=== PATIENT | female | born 1995 | race Caucasian/White ===

== ENCOUNTER 2023-05-10 13:30 | Outpatient (CLI) | payer OTHER | END 2023-05-10 13:45 | disposition home or self-care (01) | LOC: LAB.N 13:30 | PROVIDERS: ATTEND Nurse Practitioner | DX: J02.9 Acute pharyngitis, unspecified (principal) | CPT/HCPCS: 87070 ==

== ENCOUNTER 2023-07-31 14:00 | Emergency (ER) | payer OTHER ==
[2023-07-31 14:09] VITALS: O2SAT 100
--- NOTE | 2023-07-31 15:09 | ED Physician Documentation ---
History of Present Illness - Stated complaint Stated Complaint: RADHA RIVERA - Chief complaint Chief Complaint: General - Additonal information Additional information: 27-year-old female with no pertinent past medical history presents emergency dep artment for upper respiratory infection symptoms. Patient says that she has been feeling unwell since Monday she is here with her significant other who also has similar symptoms and presented to the emergency department last night for similar symptoms. Patient says that she got COVID in 2019 and since then she has been having a hard time recovering from upper respiratory infections. She endorses and some shortness of air with inhalation but no shortness of breath on exertion. She denies any chest pain no nausea vomiting diarrhea she is unsure if 70 fevers or chills she said that she felt really hot after she awoke from a nap earlier today but her took her temperature and it was within normal limits. PD PAST MEDICAL HISTORY - Past Medical History Past Medical History: No Cardiovascular: None Respiratory: None Neuro: None Endocrine/Autoimmune: None GI: None CARBIDER: None : None HEENT: None Psych: None Musculoskeletal: None Derm: None - Past Surgical History Past Surgical History: Yes HEENT: Tonsil/Adenoidectomy - Present Medications Home Medications: Ambulatory Orders Medication Instructions Recorded Confirmed Albuterol Sulf [Ventolin Hfa 1 - 2 puffs INH Q4HR PRN #1 ea 07/31/23 Inhaler] - Allergies Allergies/Adverse Reactions: Allergies Allergy/AdvReac Type Severity Reaction Status Date / Time No Known Drug Allergies Allergy Verified 07/31/23 15:45 - Social History Does the pt smoke?: No Smoking Status: Never smoker Does the pt drink ETOH?: No Does the pt have substance abuse?: No - Immunizations Immunizations are current?: Yes - POLST Patient has POLST: No PD ED PE NORMAL - Vitals Vital signs reviewed: Yes - General General: Alert and oriented X 3, No acute distress, Well developed/nourished - HEENT HEENT: Atraumatic, PERRL - Cardiac Cardiac: RRR - Respiratory Respiratory: No respiratory distress, Clear bilaterally - Abdomen Abdomen: Normal bowel sounds - Derm Derm: Normal color, Warm and dry, No rash Results - Vitals Vitals: Vital Signs - 24 hr 07/31/23 07/31/23 07/31/23 14:03 15:50 16:10 Temperature 36.7 C 36.8 C Heart Rate 88 74 77 Respiratory 16 20 16 Rate Blood Pressure 126/75 126/63 O2 Saturation 100 100 07/31/23 16:59 Temperature Heart Rate Respiratory 13 Rate Blood Pressure O2 Saturation Oxygen O2 Source Room air - Labs Labs: Laboratory Tests 07/31/23 14:06 Nasal Adenovirus (PCR) NOT DETECTED Nasal B. parapertussis DNA (PCR) NOT DETECTED Nasal Coronavir 229E PCR NOT DETECTED Nasal Coronavir HKU1 PCR NOT DETECTED Nasal Coronavir NL63 PCR NOT DETECTED Nasal Coronavir OC43 PCR NOT DETECTED Nasal Enterovir/Rhinovir PCR NOT DETECTED Nasal Influenza B PCR NOT DETECTED Nasal Influenza A PCR NOT DETECTED Nasal Parainfluen 1 PCR NOT DETECTED Nasal Parainfluen 2 PCR NOT DETECTED Nasal Parainfluen 3 PCR NOT DETECTED Nasal Parainfluen 4 PCR NOT DETECTED Nasal RSV (PCR) NOT DETECTED Nasal B.pertussis DNA PCR NOT DETECTED Nasal C.pneumoniae (PCR) NOT DETECTED Marcial Human Metapneumo PCR NOT DETECTED Nasal M.pneumoniae (PCR) NOT DETECTED Nasal SARS-CoV-2 (PCR) NOT DETECTED - Rads (name of study) 2 view chest x-ray Relevant Findings:: Final report received, EMP independent interpretation of test, Other (No acute cardiopulmonary abnormalities) PD Medical Decision Making - ED course ED course: This patient presents with symptoms suspicious for likely viral upper respiratory infection. Based on history and physical doubt sinusitis. Do not suspect underlying cardiopulmonary process. I considered, but think unlikely, dangerous causes of this patients symptoms to include ACS, CHF or COPD exacerbations, pneumonia, pneumothorax. Patient is nontoxic appearing and not in need of emergent medical intervention. Patient told to self isolate at home until symptoms subside. Respiratory panel was negative chest x-ray was also complete and did not reveal any cardiopulmonary abnormalities or pneumonia. She was given a DuoNeb here in the emergency department she did notice some allevia tion in symptoms although she said that it made her heart race which made her more anxious. Patient told to follow-up with primary care provider and she is given ER return precautions. Departure - Departure Disposition: 01 Home, Self Care Clinical Impression: Upper respiratory infection Qualifiers: URI type: unspecified viral URI Qualified Code(s): J06.9 - Acute upper respiratory infection, unspecified Condition: Good Instructions: Inhaler W Spacer, Inhaler Metered Dose Dc, ED Dyspnea Shortness of Breath Prescriptions: Albuterol Sulf [Ventolin Hfa Inhaler] 1 - 2 puffs INH Q4HR PRN #1 ea PRN Reason: Shortness Of Air/Wheezing Comments: Thank you for trusting us with your care, we have evaluated you for your shortness of breath, we have completed a respiratory panel and are not seeing any acute viral infections at this point in time. We have also completed a chest x-ray and we are not seeing any abnormalities at this time either there is no pneumonia and I am not seeing any signs of COPD that has been told to you in the past. I am sending a prescription for an albuterol inhaler to the [facility] you can pick this up first thing tomorrow morning take as needed for any shortness of breath. Continue to rest stay well-hydrated you are okay to return to work as long as you have been 24 hours without a fever without any medications like Tylenol or ibuprofen on board. Please come back to the emergency department for shortness of breath gets any worse or if he started develop any worsening wheezing or any other concerning emergent symptoms. Please help with your primary care provider. Wishing you a speedy recovery. Forms: PCP List Discharge Date/Time: 07/31/23 16:59
[2023-07-31 15:12] LABS: B. PARAPERTUSSIS- RESP PCR PAN NOT DETECTED; B. PERTUSSIS- RESP PCR PANEL NOT DETECTED; C. PNEUMONIAE- RESP PCR PANEL NOT DETECTED; CORONAVIRUS 229E-RESP PCR NOT DETECTED; CORONAVIRUS HKU1-RESP PCR NOT DETECTED; CORONAVIRUS NL63-RESP PCR NOT DETECTED; CORONAVIRUS OC43-RESP PCR NOT DETECTED; HUMAN METAPNEUMOVIRUS NOT DETECTED; INFLUENZA A- RESP PCR PANEL NOT DETECTED; INFLUENZA B - RESP PCR PANEL NOT DETECTED; M. PNEUMONIAE- RESP PCR PANEL NOT DETECTED; PARAINFLUENZA VIRUS 1 NOT DETECTED; PARAINFLUENZA VIRUS 2 NOT DETECTED; PARAINFLUENZA VIRUS 3 NOT DETECTED; PARAINFLUENZA VIRUS 4 NOT DETECTED; RHINOVIRUS/ENTEROVIRUS NOT DETECTED; RSV- RESP PCR PANEL NOT DETECTED; SARS-CoV-2 -RESP PCR PANEL NOT DETECTED
[2023-07-31] MEDS: IBUPROFEN 600 MG TABLET PO STA (15:16)
[2023-07-31] MEDS: ACETAMINOPHEN 325 MG TABLET PO STA (15:16)
[2023-07-31] MEDS: IPRATROPIUM/ALBUTEROL 3 ML NEB INH STA (15:46)
[2023-07-31 16:17] VITALS: BP 126/63
--- NOTE | 2023-07-31 16:39 | XRAY Report ---
PROCEDURE: Chest 2V INDICATIONS: SOA TECHNIQUE: 2 views of the chest were acquired. COMPARISON: None. FINDINGS: Surgical changes and devices: None. Lungs and pleura: No dense consolidation or pleural effusion. Mediastinum: Normal heart size Bones and chest wall: No suspicious bony lesions. Overlying soft tissues appear unremarkable. IMPRESSION: No acute radiographic abnormality. Reviewed by: Henok Wooten MD on 07/31/2023 4:38 PM PDT Approved by: Henok Wooten MD on 07/31/2023 4:38 PM PDT Station ID: [id number]
== END 2023-07-31 16:59 | disposition home or self-care (01) ==
LOC: ED 14:00
DX: J06.9 Acute upper respiratory infection, unspecified (principal); Z11.52 Encounter for screening for COVID-19
CPT/HCPCS: 71046; 87633; 94640; 94664; 99284; A9270

== ENCOUNTER 2023-12-18 08:00 | Outpatient (CLI) | payer OTHER ==
[2023-12-18 17:51] LABS: BILIRUBIN,URINE NEGATIVE (NEGATIVE); GLUCOSE, URINE (UA) NEGATIVE (NEGATIVE); KETONES,URINE (UA) NEGATIVE (NEGATIVE); LEUKOCYTE ESTERASE, URINE NEGATIVE (NEGATIVE); NITRITE,URINE NEGATIVE (NEGATIVE); OCCULT BLOOD,URINE TRACE-INTA (NEGATIVE); PH,URINE 6.5 PH (5.0-7.5); PROTEIN,URINE NEGATIVE (NEGATIVE); UROBILINOGEN,URINE 0.2 (NORMAL) E.U./dL (NORMAL)
[2023-12-18 19:01] LABS: CLARITY,URINE CLEAR (CLEAR); RBC,URINE 0-5 /HPF (0-5); WBC,URINE 0-3 /HPF (0-5)
[2023-12-18 19:02] LABS: BACTERIA,URINE Rare /HPF (None Seen); SQUAMOUS EPITHELIAL CELL,UR RARE Squamous (<= Few)
== END 2023-12-18 23:59 | disposition home or self-care (01) ==
LOC: LAB.WC 08:00
PROVIDERS: ATTEND Nurse Practitioner
DX: Z34.00 Encounter for supervision of normal first pregnancy, unspecified trimester (principal)
CPT/HCPCS: 81001; 87086

== ENCOUNTER 2023-12-28 18:27 | Outpatient (CLI) | payer OTHER ==
[2023-12-28 19:17] LABS: BASOPHILS # (AUTO) 0.1 10^3/uL (0.0-0.1); BASOPHILS % (AUTO) 0.5 %; EOSINOPHILS # (AUTO) 0.2 10^3/uL (0.0-0.7); HCT - HEMATOCRIT 39.2 % (37.0-47.0); HGB - HEMOGLOBIN 12.5 g/dL (12.0-16.0); LYMPHOCYTES # (AUTO) 2.9 10^3/uL (1.5-3.5); LYMPHOCYTES % (AUTO) 27.2 %; MEAN CORPUSCULAR HEMOGLOBIN 28.3 pg (27.0-31.0); MEAN CORPUSCULAR HGB CONC 31.9 g/dL (32.0-36.0); MEAN CORPUSCULAR VOLUME 88.7 fL (81.0-99.0); MEAN PLATELET VOLUME 9.6 fL (7.9-10.8); NEUTROPHILS # (AUTO) 6.5 10^3/uL (1.5-6.6); NEUTROPHILS % (AUTO) 61.1 %; PLT - PLATELET COUNT 273 10^3/uL (130-450); RED BLOOD COUNT 4.42 10^6/uL (4.20-5.40); RED CELL DISTRIBUTION WIDTH 12.8 % (12.0-15.0); WHITE BLOOD COUNT 10.7 x10^3/uL (4.8-10.8)
--- NOTE | 2023-12-28 21:44 | Ultrasound Report ---
PROCEDURE: OB 1st Trimester INDICATIONS: TEST POSITIVE OUTSIDE/PRIOR DATING DATA: Last menstrual period (LMP): 10/27/2023. LMP-based estimated date of delivery (TELMA): 08/02/2024. First dating scan (date and location): 12/27/2024. Estimated date of delivery (TELMA) from first dating scan: 07/31/2024 TECHNIQUE: Real-time scanning was performed of the fetus and maternal pelvic organs, with image documentation. COMPARISON: None. FINDINGS: Intrauterine gestational sac present. Embryo: Single live intrauterine is identified with crown-rump length measuring 2.5 cm cor responding to 9 weeks 1 day. Heart rate: 178 bpm. Other: . Subchorionic hemorrhage is present measuring 16 x 8 x 28 mm. Measurement variability in dating: +/- 4 weeks by LMP, +/- 7 days by mean sac diameter (use before 6 weeks gestation if crown-rump length not able to be measured), +/- 5 days by crown-rump length (6-12 weeks gestation). Maternal organs: Ovaries appear within normal limits. IMPRESSION: Single intraoperative gestational age today of 9 weeks 1 day. Small subchorionic hemorrhage. Recommend follow-up imaging at 20-22 weeks for dates and anatomy. Reviewed by: Syl lEder MD on 12/28/2023 9:43 PM PDT Approved by: Syl Elder MD on 12/28/2023 9:43 PM PDT Station ID: [id number]
[2023-12-30 01:08] LABS: HBsAG SCREEN Negative (Negative)
[2023-12-30 03:11] LABS: HIV SCREEN 4TH GENERATION Non Reactive (Non Reactive)
[2023-12-30 06:10] LABS: RPR Non Reactive (Non Reactive)
[2023-12-30 10:09] LABS: VARICELLA-ZOSTER AB IGG 376 index (Immune >165)
[2023-12-31 05:09] LABS: HCV AB Non Reactive (Non Reactive)
== END 2023-12-28 18:28 | disposition home or self-care (01) ==
LOC: DI 18:27
PROVIDERS: ATTEND Nurse Practitioner
DX: O46.8X1 Other antepartum hemorrhage, first trimester (principal); Z36.89 Encounter for other specified antenatal screening; Z3A.09 9 weeks gestation of pregnancy
CPT/HCPCS: 36415; 85025; 86592; 86762; 86787; 86803; 86850; 86900; 86901; 87340; 87389

== ENCOUNTER 2024-01-22 15:10 | Outpatient (CLI) | payer OTHER ==
[2024-01-22 20:17] LABS: CHLAMYDIA TRACHOMATIS DNA NEGATIVE (NEGATIVE); NEISSERIA GONORRHOEAE DNA NEGATIVE (NEGATIVE); TRICHOMONAS VAGINALIS DNA NEGATIVE (NEGATIVE)
== END 2024-01-22 15:11 | disposition home or self-care (01) ==
LOC: LAB 15:10
PROVIDERS: ATTEND Nurse Practitioner
DX: Z36.89 Encounter for other specified antenatal screening (principal)
CPT/HCPCS: 87491; 87591; 87661